=== PATIENT | male | born 1985 | race Caucasian/White ===

== ENCOUNTER 2016-10-11 19:48 | Emergency (ER) | payer SELFPAY ==
[2016-10-11 20:01] VITALS: BP 104/59
--- NOTE | 2016-10-11 21:46 | RAD ---
INDICATION: Left ankle injury. TECHNIQUE: 2 views of the left ankle were obtained. FINDINGS: The exam is limited. The patient was unable to be positioned for the standard views. There is diffuse soft tissue swelling present. There is an oblique fracture of the distal diaphysis and metaphysis of the tibia. The distal fragment is displaced one cortical diameter lateral relative to the proximal fragment. There is also an oblique intra-articular fracture of the distal fibula. The distal fragment is displaced posterior approximately 1 cortical diameter. IMPRESSION: THERE IS AN OBLIQUE DISPLACED FRACTURE OF THE DISTAL DIAPHYSIS AND METAPHYSIS OF THE TIBIA AND OBLIQUE INTRA-ARTICULAR SLIGHTLY DISPLACED FRACTURE OF THE DISTAL FIBULA. THIS IS AN ATYPICAL FRACTURE AND THE STUDY IS LIMITED THEREFORE RECOMMEND A CT OF THE ANKLE FOR FURTHER EVALUATION.
--- NOTE | 2016-10-11 21:48 | RAD ---
INDICATION: Left lower leg injury. TECHNIQUE: 2 views of the left lower leg were obtained. FINDINGS: There is diffuse soft tissue swelling around the ankle. There is an oblique fracture of the distal diaphysis and metaphysis of the tibia. The distal fragment is displaced one cortical diameter lateral relative the proximal fragment. There is also an oblique intra-articular fracture of the distal fibula. The distal fragment is displaced posterior one cortical diameter. No additional fractures are seen. IMPRESSION: DISPLACED FRACTURES OF THE DISTAL TIBIA AND FIBULA PREVIOUSLY DESCRIBED, NO ADDITIONAL FRACTURES ARE SEEN.
[2016-10-11] MEDS ORDERED: Morphine INJ* 4 MG/ML 1 ML SYRINGE IM ONE (21:55)
[2016-10-11] MEDS ORDERED: Acetaminophen TAB* 325 MG PO ONE (21:55)
--- NOTE | 2016-10-11 22:47 | RAD ---
INDICATION: Left ankle fracture. COMPARISON: Correlation is made with a prior x-ray study of the left ankle and lower leg from October 11, 2016. TECHNIQUE: Contiguous axial sections were obtained of the left ankle. Images were reconstructed in the sagittal and coronal planes. FINDINGS: There is diffuse soft tissue swelling. There is an oblique slightly comminuted fracture extending through the distal diaphysis and metaphysis of the tibia. The distal fragment is displaced approximately 2 cortical diameters lateral relative to the proximal fragment. There is also a slightly displaced fracture through the posterior malleolus which extends to the posterior articular surface. There is an oblique intra-articular fracture of the distal fibula. The distal fragment is displaced one cortical diameter posterior relative the proximal fragment. IMPRESSION: 1. OBLIQUE, SLIGHTLY COMMINUTED, DISPLACED FRACTURE OF THE DISTAL DIAPHYSIS AND METAPHYSIS OF THE TIBIA. 2. SLIGHTLY DISPLACED FRACTURE OF THE POSTERIOR MALLEOLUS. 3. OBLIQUE SLIGHTLY DISPLACED INTRA-ARTICULAR FRACTURE OF THE DISTAL FIBULA.
[2016-10-11] MEDS ORDERED: Acetaminop/Codeine 30 MG TAB* 1 TAB (300 MG/30 MG) PO ONE (23:32)
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
[2016-10-12] MEDS ORDERED: Acetaminop/Codeine 30 MG TAB* 1 TAB (300 MG/30 MG) PO ONE (00:20)
== END 2016-10-12 00:34 | disposition home or self-care (01) ==
LOC: ED 19:48
DX: S82.392A Other fracture of lower end of left tibia, initial encounter for closed fracture (principal); S82.832A Other fracture of upper and lower end of left fibula, initial encounter for closed fracture; W50.0XXA Accidental hit or strike by another person, initial encounter; Y93.23 Activity, snow (alpine) (downhill) skiing, snowboarding, sledding, tobogganing and snow tubing; Y92.9 Unspecified place or not applicable; Z87.891 Personal history of nicotine dependence
CPT/HCPCS: 96372; 99282; A9270-GY; J2270

== ENCOUNTER 2016-10-12 09:14 | Observation (INO) | payer SELFPAY ==
[2016-10-12] MEDS ORDERED: Morphine INJ* 2 MG/ML 1 ML CARPUJECT IV PRN (10:07)
[2016-10-12] MEDS ORDERED: Ondansetron INJ* 2 MG/ML VIAL IV PRN ×3 (10:11→14:04)
--- NOTE | 2016-10-12 10:16 | ED ---
Lower Extremity - HPI Summary HPI Summary: Patient arrives to ED after being discharged last evening with a spiral fracture with splint. Dr. Oconnor called patient with patient c/o pain. Decided will admit to [facility] [place] for ortho unit. Patients pain is well controlled. denies numbness tingling or temperature or color changes. for full report, see HPI from last evening. - History of Current Complaint Chief Complaint: EDExtremityLower Stated Complaint: LEFT FOOT COMMING PER DR RASCON Time Seen by Provider: 10/12/16 09:35 Hx Obtained From: Patient Onset of Pain: Hours Onset/Duration: Hours Severity Initially: Moderate Severity Currently: Moderate Pain Intensity: 8 Pain Scale Used: 0-10 Numeric Timing: Intermittent Location: Is Discrete @ - left leg Associated Signs And Symptoms: Positive: Swelling Aggravating Factor(s): Standing, Ambulation Alleviating Factor(s): Rest Able to Bear Weight: No - Allergies/Home Medications Allergies/Adverse Reactions: Allergies Allergy/AdvReac Type Severity Reaction Status Date / Time No Known Allergies Allergy Verified 10/12/16 09:21 PMH/Surg Hx/FS Hx/Imm Hx Previously Healthy: Yes Endocrine/Hematology History: Denies: Hx Diabetes Cardiovascular History: Denies: Hx Hypertension Respiratory History: Denies: Hx Asthma Infectious Disease History: No Infectious Disease History: Denies: Traveled Outside the [place] in Last 30 Days - Family History Known Family History: Positive: None - Social History Occupation: Employed Full-time Lives: With Family Alcohol Use: Rare Substance Use Type: Reports: None Smoking Status (MU): Former Smoker Review of Systems Constitutional: Negative Eyes: Negative Cardiovascular: Negative Respiratory: Negative Positive: no symptoms reported, see HPI Positive: Arthralgia - left leg pain Positive: Bruising Neurological: Negative All Other Systems Reviewed And Are Negative: Yes Physical Exam Triage Information Reviewed: Yes Vital Signs On Initial Exam: Initial Vitals Temp Pulse Resp BP Pulse Ox 98.0 F 77 15 114/68 100 10/12/16 09:21 10/12/16 09:21 10/12/16 09:21 10/12/16 09:21 10/12/16 09:21 Vital Signs Reviewed: Yes Appearance: Positive: Well-Appearing, Well-Nourished Skin: Positive: Skin Color Reflects Adequate Perfusion, Other - splint covering left leg, unable to assess Eyes: Positive: Normal, ADILSON Neck: Positive: Supple, No Lymphadenopathy Respiratory/Lung Sounds: Positive: Clear to Auscultation, Breath Sounds Present Cardiovascular: Positive: Normal Musculoskeletal: Positive: Other - limited d/t recent injury of spiral fracture. Patient is placed in splint and unable to assess function Neurological: Positive: Normal Psychiatric: Positive: Normal - [place] Coma Scale Coma Scale Total: 15 Diagnostics - Vital Signs Vital Signs Temp Pulse Resp BP Pulse Ox 10/12/16 09:21 98.0 F 77 15 114/68 100 - Laboratory Lab Statement: Any lab studies that have been ordered have been reviewed, and results considered in the medical decision making process. Lower Extremity Course/Dx - Course Course Of Treatment: Patient arrived in ED. pain is well controlled. brief physical exam. Dr. Oconnor paged and will see and admit patient. no - Diagnoses Differential Diagnosis/HQI/PQRI: Positive: Contusion, Fracture (Closed), Fracture (Open) Provider Diagnoses: Left leg pain Discharge - Discharge Plan Condition: Stable Disposition: ADMITTED TO [facility]
[2016-10-12] MEDS ORDERED: HYDROmorphone INJ* 1 MG/ML CARPUJECT SYRINGE ONE ×2 (10:32→11:23)
[2016-10-12] MEDS ORDERED: fentaNYL* 50 MCG/ML 2 ML VIAL (100 MCG VIAL) ONE ×2 (10:33→12:57)
[2016-10-12] MEDS ORDERED: Ondansetron INJ* 2 MG/ML VIAL ONE ×2 (10:48→12:07)
[2016-10-12] MEDS ORDERED: Morphine INJ* 2 MG/ML 1 ML CARPUJECT ONE (10:48)
[2016-10-12] MEDS ORDERED: Midazolam* 1 MG/ML 2 ML VIAL (2 MG) ONE (11:21)
[2016-10-12] MEDS ORDERED: Famotidine IV* 10 MG/ML 2 ML (20 mg) IV ONE (11:43)
[2016-10-12] MEDS ORDERED: DiMENhydriNATE IV* 50 MG/ML VIAL IV PUSH PRN (11:43)
[2016-10-12] MEDS ORDERED: Scopolamine 1.5 mg* PATCH TRANSDERM PRN (11:43)
[2016-10-12] MEDS ORDERED: PROCHLORPERAZINE INJ 5 MG/ML 2 ML VIAL IV PRN (11:43)
[2016-10-12] MEDS ORDERED: fentaNYL* 50 MCG/ML 2 ML VIAL (100 MCG VIAL) IV PRN (11:43)
[2016-10-12] MEDS ORDERED: Dexamethasone IV* 4 MG/ML 1 ML (4 MG) IV SLOW PU ONE (11:43)
[2016-10-12] MEDS ORDERED: Buffered Lidocaine 1% SYR 3ML* 3 ML/SYR SYRINGE INTRADERM ONE (11:43)
[2016-10-12] MEDS ORDERED: HYDROmorphone INJ* 1 MG/ML CARPUJECT SYRINGE IV PRN (11:43)
[2016-10-12] MEDS ORDERED: Famotidine IV* 10 MG/ML 2 ML (20 mg) ONE (11:44)
[2016-10-12] MEDS ORDERED: Dexamethasone IV* 4 MG/ML 1 ML (4 MG) ONE (11:44)
[2016-10-12] MEDS ORDERED: ceFAZolin 2 GM PREMIX (*) 2 GM/50 ML BAG IVPB ONE (12:03)
[2016-10-12] MEDS ORDERED: Bupivacaine 0.5% SDV PF* 30 ML VIAL ONE ×2 (12:05→12:53)
[2016-10-12] MEDS ORDERED: Lidocaine 2% PF * 5 ML VIAL ONE (12:07)
[2016-10-12] MEDS ORDERED: Propofol* 10 MG/ML 20 ML BTL IV PUSH ONE (12:07)
[2016-10-12] MEDS ORDERED: Ketorolac INJ* 30 MG/ML 1 ML VIAL ONE (12:07)
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
[2016-10-12] MEDS ORDERED: diPHENhydraMINE IV* 50 MG/ML 1 ml VIAL (BENADRYL) IV PRN (14:04)
[2016-10-12] MEDS ORDERED: Acetaminophen TAB* 325 MG PO PRN (14:04)
[2016-10-12] MEDS ORDERED: oxyCODONE/Acetamin 5/325 MG* TAB PO PRN ×2 (14:04)
--- NOTE | 2016-10-12 15:44 | RAD ---
Indication: Traumatic left tibial fracture. 2 views of the left ankle demonstrates internal fixation of a comminuted distal tibial fracture. Side plate and screws are present. IMPRESSION: Internal fixation distal tibial fracture.
--- NOTE | 2016-10-12 15:53 | RAD ---
CPT II Codes: 6045F. Indication: Tibia fracture. Fluoroscopic services provided for referring physician. Approximately 4.7 minutes of fluoroscopy time was used. One spot image demonstrates internal fixation of comminuted distal tibial fracture. IMPRESSION: Fluoroscopic services provided for referring physician for internal fixation of a tibial fracture.
[2016-10-12] MEDS: ceFAZolin 1 GM in Dextrose (*) 1 GM/50 ML BAG IVPB SCH (18:19)
[2016-10-13] MEDS: ceFAZolin 1 GM in Dextrose (*) 1 GM/50 ML BAG IVPB SCH ×2 (00:51→06:23)
--- NOTE | 2016-10-13 03:53 | OP ---
DATE OF OPERATION: 10/12/16 - ROOM #340 DATE OF : 87 ATTENDING SURGEON: Josse Oconnor MD MANAGER OFFICE: Nahun Booker PA-C ANESTHESIOLOGIST: Ruddy Carter MD ANESTHESIA: General PRE-OP DIAGNOSIS: Displaced left tibia-fibula fracture. POST-OP DIAGNOSIS: Displaced left tibia-fibula fracture. OPERATIVE PROCEDURE: Open reduction and internal fixation, left tibia with locking plate. DESCRIPTION OF PROCEDURE: The patient was taken to the operating room where general anesthesia was administered. After a popliteal block, we also blocked the saphenous nerve. Standard AO anterior incision was made just lateral to the tibial crest coursing across the distal area of the saphenous to the medial malleolus. We raised the full thickness flap off the medial aspect of the tibia. A crab-claw clamp was used to reduce the tibia anatomically and this was pinned temporarily with 0.062 C-wire. We then fashioned an 8-hole distal medial Synthes locking plate along the medial tibial crest. This was fixed to the tibia with a combination of locking and non-locking screws as well as a lag screw at the fracture site. We irrigated thoroughly closing the subcu with 2-0 Vicryl sutures and then took extensive x-rays of the tibia and fibula. The fibula was noted to be much better reduced and was not open. This was mostly to preserve the skin bridge. Then, we completed the skin closure with adiel and nylon sutures and a compression dressing plaster splint applied. [id number]/[facility] #: [id number] MTDD
--- NOTE | 2016-10-13 12:04 | PN ---
Progress Note - Progress Note SOAP: Subjective: [Pt seen this AM sitting in chair. Pt states that he is feeling very good. States he was able to walk around the unit without any issue using crutches. Pt denies any numbness or tingling of the Left foot. He states his pain is well controlled with only the one percocet. ] Objective: [General: Pt is alert, awake and oriented. NAD. MSK: LLE: Pt has a splint on. He is able to wiggle toes. Has sensation in all toes to light touch. He is able to lift his leg up off the chair. ] Vital Signs Temp 97.7 F 10/13/16 07:58 Pulse 68 10/13/16 07:58 Resp 18 10/13/16 10:10 BP 98/50 10/13/16 07:58 Pulse Ox 100 10/13/16 07:58 Intake & Output 10/12/16 10/13/16 10/13/16 18:59 06:59 18:59 Intake Total 2878 4649 225 Output Total 1425 1974 Balance 1453 2674 225 Weight 135 lb Intake: IV Fluids 2425 95 LR 1400 abx 55 ns 20 IVPB 53 54 Oral 400 4500 225 Output: Urine [id number] Other: Estimated Void Medium Assessment: [L tibia ORIF ] Plan: [Pt will be discharged today Will take Oxycodone 5mg for pain relief Will take Aspirin 325mg bid for 2 weeks for anticoagulation Will follow up on Friday for cast change ]
[2016-10-13 12:11] VITALS: BP 90/49
[2016-10-13] MEDS ORDERED: Enoxaparin(*) 30 MG/0.3 ML SYR SUBCUT SCH (16:00)
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
[2016-10-15] MEDS ORDERED: Scopolamine PATCH Remove* 1 NOTE MISC PATCH OFF ONE (11:44)
== END 2016-10-13 12:35 | disposition home or self-care (01) ==
LOC: ED 09:14 → SSU 10:03 → AA 11:21 → SSU 14:04
PROVIDERS: ADMIT Orthopaedic Surgery; ATTEND Orthopaedic Surgery
PROC: 0QSH04Z Reposition Left Tibia with Internal Fixation Device, Open Approach (ICD-10-PCS; 2016-10-12)
PROC: 0QSK04Z Reposition Left Fibula with Internal Fixation Device, Open Approach (ICD-10-PCS; principal; 2016-10-12 12:00)
DX: S82.242A Displaced spiral fracture of shaft of left tibia, initial encounter for closed fracture (principal); S82.442A Displaced spiral fracture of shaft of left fibula, initial encounter for closed fracture; X58.XXXA Exposure to other specified factors, initial encounter; Y93.23 Activity, snow (alpine) (downhill) skiing, snowboarding, sledding, tobogganing and snow tubing; Y92.9 Unspecified place or not applicable; Z87.891 Personal history of nicotine dependence
CPT/HCPCS: 76000; 99281; A9270-GY; C1713; C1776; G0378; J0690; J1100; J1170; J1885; J2250; J2270; J2405; J2704; J3010

== ENCOUNTER 2017-12-15 02:50 | Emergency (ER) | payer OTHER ==
[2017-12-15 02:54] VITALS: BP 122/62
[2017-12-15] MEDS ORDERED: Tetan/Diph/Pertus SYR(Tdap)* 0.5 ML SYR(BOOSTRIX) use SYR IM ONE (02:57)
--- NOTE | 2017-12-16 23:37 | ED ---
Lashae Rueda Julia, scribed for Ang Mercado MD on 12/15/17 at 0301 . Laceration/Wound HPI - HPI Summary HPI Summary: This patient is a 32 year old M presenting to [facility] coming from upstairs due to a laceration to his right hand from a staple in a couch. He states that he cleaned the wound. His last tetanus shot was more than ten years ago. - History of Current Complaint Stated Complaint: HAND INJURY Time Seen by Provider: 12/15/17 02:55 Hx Obtained From: Patient Mechanism of Injury: Sharp/Blunt Trauma Onset/Duration: Sudden Onset Timing: Constant Current Severity: Mild Pain Intensity: 0 Associated Signs & Symptoms: Negative Related Hx: Occupational Injury - Allergy/Home Medications Allergies/Adverse Reactions: Allergies Allergy/AdvReac Type Severity Reaction Status Date / Time No Known Allergies Allergy Verified 12/15/17 02:54 Home Medications: Home Medications NK [No Home Medications Reported] 12/15/17 [History Confirmed 12/15/17] PMH/Surg Hx/FS Hx/Imm Hx Endocrine/Hematology History: Denies: Hx Diabetes Cardiovascular History: Denies: Hx Hypertension Respiratory History: Denies: Hx Asthma - Surgical History Surgery Procedure, Year, and Place: 10/11 - left ORIF ankle Hx Anesthesia Reactions: No Infectious Disease History: No Infectious Disease History: Denies: Traveled Outside the [place] in Last 30 Days - Family History Known Family History: Negative: Hypertension - Social History Occupation: Employed Full-time Alcohol Use: Occasionally Substance Use Type: Reports: None Smoking Status (MU): Former Smoker Review of Systems Constitutional: Negative Positive: Other - laceration All Other Systems Reviewed And Are Negative: Yes Physical Exam - Summary Physical Exam Summary: Appearance: Well-appearing, Well-nourished, lying in bed comfortably Skin: Warm, dry, no obvious rash, 2cm laceration to the right hypothenar eminence with minimal bleeding Eyes: sclera anicteric, no conjunctiva pallor ENT: mucous membranes moist, pharynx appears normal Neck: Supple, nontender Respiratory: Clear to auscultation, no signs of respiratory distress Cardiovascular: Normal S1, S2. No murmurs. Normal distal pulses in tibial and radial bilaterally. Abdomen: Soft, nontender, normal active bowel sounds present Musculoskeletal: Normal, Strength/ROM Intact Neurological: A&Ox3, awake and alert, mentation is normal, speech is fluent and appropriate Psychiatric: affect is normal, does not appear anxious or depressed Triage Information Reviewed: Yes Vital Signs On Initial Exam: Initial Vitals Temp Pulse Resp BP Pulse Ox 97.4 F 61 18 122/62 98 12/15/17 02:51 12/15/17 02:51 12/15/17 02:51 12/15/17 02:51 12/15/17 02:51 Vital Signs Reviewed: Yes Diagnostics - Vital Signs Vital Signs Temp Pulse Resp BP Pulse Ox 12/15/17 02:51 97.4 F 61 18 122/62 98 - Laboratory Lab Statement: Any lab studies that have been ordered have been reviewed, and results considered in the medical decision making process. Laceration Repair Course/Dx - Clinical Impression Provider Diagnoses: Laceration of hand Discharge - Sign-Out/Discharge Documenting (check all that apply): Discharge/Admit/Transfer - Discharge Plan Condition: Good Disposition: HOME Patient Education Materials: Laceration Without Closure (ED) Referrals: Cristiane Holland NP [Primary Care Provider] - Additional Instructions: You may return to your normal duties. The tetanus shot should be good for 10 years. - Billing Disposition and Condition Condition: GOOD Disposition: HOME The documentation as recorded by the Lashae martínez Julia accurately reflects the service I personally performed and the decisions made by me, Ang Mercado MD.
== END 2017-12-15 03:22 | disposition home or self-care (01) ==
LOC: ED 02:50
DX: S61.411A Laceration without foreign body of right hand, initial encounter (principal); W26.8XXA Contact with other sharp object(s), not elsewhere classified, initial encounter; Y92.239 Unspecified place in hospital as the place of occurrence of the external cause; Z23 Encounter for immunization; Z87.891 Personal history of nicotine dependence
CPT/HCPCS: 90471; 90715; 99282